=== PATIENT | male | born 1965 | race African-American/Black ===

== ENCOUNTER 2016-04-17 10:20 | Inpatient (IN) | payer OTHER ==
[2016-04-17 12:03] VITALS: BMI 18.3
--- NOTE | 2016-04-17 13:42 | HP ---
CIWA Score - CIWA Score Nausea/Vomitin Muscle Tremors: 4-Moderate,w/Arms Extend Anxiety: 3 Agitation: 0-Normal Activity Paroxysmal Sweats: 3 Orientation: 4Disoriented Place/Person Tacttile Disturbances: 0-None Auditory Disturbances: 2-Mild Harshness/Frighten Visual Disturbances: 0-None Headache: 3-Moderate CIWA-Ar Total Score: 24 Admission ROS S - HPI Chief Complaint: "I am here to quick drinking and to go to Rehab." Pt. is here to Detox from Alcohol. Allergies/Adverse Reactions: Allergies Allergy/AdvReac Type Severity Reaction Status Date / Time No Known Allergies Allergy Verified 04/17/16 11:41 History of Present Illness: Pt. is a 50 YO male here to Detox from Alcohol. Pt. has had 1 previous Detox admission at [facility], approx. 5 years ago. Pt. also intermittently uses Cocaine. Exam Limitations: No Limitations - Ebola screening Have you traveled outside of the country in the last 21 days: No Have you had contact with anyone from an Ebola affected area: No Have you been sick,other than usual withdrawal symptoms: No Do you have a fever: No - Review of Systems Constitutional: Diaphoresis, Loss of Appetite, Malaise, Night Sweats, Changes in sleep EENT: reports: No Symptoms Reported Respiratory: reports: No Symptoms reported Cardiac: reports: No Symptoms Reported GI: reports: Constipated, Diarrhea, Nausea, Poor Appetite, Vomiting : reports: No Symptoms Reported Musculoskeletal: reports: No Symptoms Reported Integumentary: reports: No Symptoms Reported Neuro: reports: Headache, Tremors Endocrine: reports: No Symptoms Reported Hematology: reports: No Symptoms Reported Psychiatric: reports: Judgement Intact, Mood/Affect Appropiate, Disorientated ( To Location.) Other Systems: Reviewed and Negative Patient History - Patient Medical History Hx Anemia: No Hx Asthma: Yes (Uses Albuterol Inhaler.) Hx Chronic Obstructive Pulmonary Disease (COPD): No Hx Cancer: No Hx Cardiac Disorders: No Hx Congestive Heart Failure: No Hx Hypertension: Yes (On meds.) Hx Hypercholesterolemia: No Hx Pacemaker: No HX Cerebrovascular Accident: No Hx Seizures: No Hx Dementia: No Hx Diabetes: No Hx Gastrointestinal Disorders: No Hx Liver Disease: No Hx Genitourinary Disorders: No Hx Sexually Transmitted Disorders: No Hx Renal Disease (ESRD): No Hx Thyroid Disease: No Hx Human Immunodeficiency Virus (HIV): No (Last tested: 2016: NEGATIVE.) Hx Hepatitis C: No (Last tested: 2016: NEGATIVE.) Hx Depression: No Hx Suicide Attempt: No (PATIANT DENIES CURRENT SI / HI.) Hx Bipolar Disorder: No Hx Schizophrenia: No - Patient Surgical History Past Surgical History: No Hx Neurologic Surgery: No Hx Cataract Extraction: No Hx Cardiac Surgery: No Hx Lung Surgery: No Hx Breast Surgery: No Hx Breast Biopsy: No Hx Abdominal Surgery: Yes (Umbilical Hernia repair during childhood.) Hx Appendectomy: No Hx Cholecystectomy: No Hx Genitourinary Surgery: No Hx Orthopedic Surgery: No Anesthesia Reaction: No - PPD History Previous Implant?: Yes (+PPD hx.) Documented Results: Positive w/o proof PPD to be Administered?: No - Reproductive History Patient is a Female of Child Bearing Age (11 -55 yrs old): No (PATIENT IS MALE.) - Smoking Cessation Smoking history: Current every day smoker Have you smoked in the past 12 months: Yes Aproximately how many cigarettes per day: 10 Cigars Per Day: 0 Hx Chewing Tobacco Use: No Initiated information on smoking cessation: Yes 'Breaking Loose' booklet given: 04/17/16 (GIVEN ON UNIT.) - Substance & Tx. History Hx Alcohol Use: Yes Hx Substance Use: Yes Substance Use Type: Alcohol, Cocaine Hx Substance Use Treatment: Yes (1 Previous Detox admission at [facility].) - Substances Abused Alcohol Route: Oral Frequency: Daily Amount used: (6) 40oz beer. Age of first use: 20 Date of Last Use: 04/16/16 Cocaine Route: Inhalation Frequency: 1-3 times last 30 days Amount used: $100 Age of first use: 15 Date of Last Use: 04/15/16 Family Disease History - Family Disease History Family Disease History: Diabetes: Mother Admission Physical Exam S - Vital Signs Vital Signs: Vital Signs - 24 hr 04/17/16 11:59 Temperature 96 F L Pulse Rate 73 Respiratory 20 Rate Blood Pressure 113/76 - Physical General Appearance: Yes: No Apparent Distress, Nourished, Appropriately Dressed , Tremorous HEENTM: Yes: Hearing grossly Normal, Normocephalic, Normal Voice, ALONDRA, Pharynx Normal Respiratory: Yes: Chest Non-Tender, Lungs Clear, No Respiratory Distress Neck: Yes: No masses,lesions,Nodules, Supple, Trachea in good position Breast: Yes: Breast Exam Deferred Cardiology: Yes: Regular Rhythm, Regular Rate, S1, S2 Abdominal: Yes: Normal Bowel Sounds, Non Tender, Flat, Soft Genitourinary: Yes: Within Normal Limits Back: Yes: Normal Inspection Musculoskeletal: Yes: full range of Motion, Gait Steady Extremities: Yes: Normal Inspection, Normal Range of Motion, Non-Tender, Tremors Neurological: Yes: Alert, Normal Mood/Affect, Normal Response, Disoriented (To Location.) Integumentary: Yes: Normal Color, Dry, Warm Lymphatic: Yes: Within Normal Limits - Diagnostic (1) Alcohol dependence with uncomplicated withdrawal Current Visit: Yes Status: Acute (2) Cocaine dependence, uncomplicated Current Visit: Yes Status: Acute (3) Nicotine dependence Current Visit: Yes Status: Chronic Qualifiers: Nicotine product type: cigarettes Substance use status: uncomplicated Qualified Code(s): F17.210 - Nicotine dependence, cigarettes, uncomplicated (4) Asthma Current Visit: Yes Status: Chronic Qualifiers: Asthma severity: mild intermittent Asthma complication type: uncomplicated Qualified Code(s): J45.20 - Mild intermittent asthma, uncomplicated (5) Hypertension Current Visit: Yes Status: Chronic Qualifiers: Hypertension type: essential hypertension Qualified Code(s): I10 - Essential (primary) hypertension Cleared for Admission S - Detox or Rehab [facility] Level of Care: Medically Managed Detox Regimen/Protocol: Librium [facility] Breath Alcohol Content Breath Alcohol Content: 0 Urine Drug Screen - Results Drug Screen Negative: No Urine Drug Screen Results: OMAR-Cocaine
[2016-04-17] MEDS ORDERED: hydrOXYzine PAMOATE 50 MG CAPSULE (FP) PO PRN (14:07)
[2016-04-17] MEDS ORDERED: IBUPROFEN 400 MG TABLET (FP) PO PRN (14:07)
[2016-04-17] MEDS ORDERED: ACETAMINOPHEN 325 MG TABLET (FP) PO PRN (14:07)
[2016-04-17] MEDS ORDERED: LOPERAMIDE HCL 2 MG CAPSULE PO PRN (14:07)
[2016-04-17] MEDS ORDERED: NICOTINE POLACRILEX 2 MG GUM BUC PRN (14:07)
[2016-04-17] MEDS ORDERED: MENTHOL/PHENOL 1 EACH UD MM PRN (14:07)
[2016-04-17] MEDS ORDERED: MAGNESIUM HYDROX 2400MG/30ML ORAL SUSPENSION 30 ML CUP PO PRN (14:07)
[2016-04-17] MEDS ORDERED: MAGNESIUM CITRATE 300 ML BOTTLE PO PRN (14:07)
[2016-04-17] MEDS ORDERED: diphenhydrAMINE HCL 50 MG CAPSULE PO PRN (14:07)
[2016-04-17] MEDS ORDERED: guaiFENesin/D-METHORPHAN HB 10 ML UNIT-DOSE CUPS PO PRN (14:07)
[2016-04-17] MEDS ORDERED: P-EPHED 60MG/TRIPROLIDI 2.5MG TABLET PO PRN (14:07)
[2016-04-17] MEDS ORDERED: MAG HYDROX/AL HYDROX/SIMETH 30 ML UNIT-DOSE CUP PO PRN (14:07)
[2016-04-17] MEDS ORDERED: chlordiazePOXIDE HCL 25 MG CAPSULE PO PRN (14:07)
[2016-04-17] MEDS ORDERED: ALBUTEROL SO4 6.7 GM HFA INHALER IH PRN (14:13)
[2016-04-17] MEDS ORDERED: chlordiazePOXIDE HCL 25 MG CAPSULE PO ONE (14:30)
[2016-04-17] MEDS: LOSARTAN POTASSIUM 25 MG TABLET PO SCH (15:13)
[2016-04-17 17:39] LABS: URINE APPEARANCE SLCLOUDY; URINE BLOOD NEGATIVE (NEGATIVE); URINE COLOR AMBER; URINE GLUCOSE (UA) NEGATIVE (NEGATIVE); URINE KETONE 1+ (NEGATIVE); URINE NITRITE NEGATIVE (NEGATIVE); URINE UROBILINOGEN 4.0 E.U/dl E.U./dl (0.2-1.0)
[2016-04-17 17:50] LABS: URINE LEUK ESTERASE 2+ (NEGATIVE); URINE PROTEIN 1+ (NEGATIVE)
[2016-04-17] MEDS: chlordiazePOXIDE HCL 25 MG CAPSULE PO SCH ×2 (17:55→23:45)
[2016-04-17 18:01] LABS: CALCIUM OXALATE CRYSTALS MODERATE /hpf (NONE SEEN); URINE MUCUS MANY; URINE RBC 3 /hpf (0-3); URINE WBC 2 /hpf (3-5)
[2016-04-17] MEDS: THIAMINE HCL 100 MG TABLET (FP) PO SCH (22:55)
--- NOTE | 2016-04-18 00:04 | EKG ---
Test Reason : Blood Pressure : / mmHG Vent. Rate : 053 BPM Atrial Rate : 053 BPM P-R Int : 162 ms QRS Dur : 106 ms QT Int : 456 ms P-R-T Axes : 068 068 065 degrees QTc Int : 427 ms SINUS BRADYCARDIA MODERATE VOLTAGE CRITERIA FOR LVH, MAY BE NORMAL VARIANT BORDERLINE ECG NO PREVIOUS ECGS AVAILABLE Confirmed by SWAPNIL COURTNEY MD ([id number]) on 04/18/2016 12:03:55 AM Referred By: Confirmed By:SWAPNIL COURTNEY MD
[2016-04-18] MEDS: chlordiazePOXIDE HCL 25 MG CAPSULE PO SCH ×4 (05:39→23:06)
[2016-04-18 10:01] LABS: MCH 27.3 pg (25.7-33.7); MCHC 32.2 g/dl (32.0-35.9); MEAN CELL VOLUME 84.8 fl (80-96); MEAN PLT VOLUME 9.6 fl (7.5-11.1); PLATELET COUNT 169 K/MM3 (134-434); RDW 15.4 % (11.9-15.9); WHITE BLOOD COUNT 5.4 K/mm3 (4.0-10.0)
[2016-04-18 10:13] LABS: ALBUMIN 3.3 g/dl (3.4-5.0); ANION GAP 8 (8-16); CO2 31 mmol/L (21-32); GLUCOSE,RANDOM 81 mg/dL (74-106)
[2016-04-18 10:21] LABS: ALK PHOS 73 U/L (45-117); BILIRUBIN,TOTAL 0.2 mg/dL (0.2-1.0); CREATININE 1.1 mg/dL (0.7-1.3); SGOT/AST 23 U/L (15-37); SGPT/ALT 23 U/L (12-78); TOT PROT 6.2 g/dl (6.4-8.2)
[2016-04-18 10:45] LABS: HIV 1 & 2 AB NEGATIVE; HIV 1 AGp24 NEGATIVE
[2016-04-18] MEDS: PRENATAL VITAMINS W/ FOLIC ACID TABLET (FP) PO SCH (10:56)
[2016-04-18] MEDS: LOSARTAN POTASSIUM 25 MG TABLET PO SCH (10:56)
[2016-04-18] MEDS ORDERED: POTASSIUM CHLORIDE TABS 20 MEQ TABLET.ER (FP) PO ONE (11:28)
--- NOTE | 2016-04-18 11:28 | PN ---
S CIWA - CIWA Score Nausea/Vomitin Muscle Tremors: 3 Anxiety: 3 Agitation: 3 Paroxysmal Sweats: 1-Minimal Palms Moist Orientation: 0-Oriented Tacttile Disturbances: 1-Very Mild Itch/Numbness Auditory Disturbances: 1-Very Mild Visual Disturbances: 1-Very Mild Sensitivity Headache: 2-Mild CIWA-Ar Total Score: 18 [facility] Progress Note (SOAP) Subjective: ALERT,IRRITABLE,ANXIOUS,INTERRUPTED SLEEP,TREMOR Objective: 04/18/16 11:24 Vital Signs Temperature 97.7 F 04/18/16 10:16 Pulse Rate 68 04/18/16 10:16 Respiratory Rate 16 04/18/16 10:16 Blood Pressure 116/65 04/18/16 10:16 O2 Sat by Pulse Oximetry (%) 04/18/16 11:24 EKG SINUS BRADYCARDIA 53 MIN,LVH NO CHEST PAIN,NO SOB,NO DIZZINESS Assessment: 04/18/16 11:25 Laboratory Last Values WBC 5.4 K/mm3 (4.0-10.0) 04/18/16 07:00 RBC 4.50 M/mm3 (4.00-5.60) 04/18/16 07:00 Hgb 12.3 GM/dL (11.7-16.9) 04/18/16 07:00 Hct 38.2 % (35.4-49) 04/18/16 07:00 MCV 84.8 fl (80-96) 04/18/16 07:00 MCHC 32.2 g/dl (32.0-35.9) 04/18/16 07:00 RDW 15.4 % (11.9-15.9) 04/18/16 07:00 Plt Count 169 K/MM3 (134-434) 04/18/16 07:00 MPV 9.6 fl (7.5-11.1) 04/18/16 07:00 Sodium 142 mmol/L (136-145) 04/18/16 07:00 Potassium 3.3 mmol/L (3.5-5.1) L 04/18/16 07:00 Chloride 103 mmol/L (98-107) 04/18/16 07:00 Carbon Dioxide 31 mmol/L (21-32) 04/18/16 07:00 Anion Gap 8 (8-16) 04/18/16 07:00 BUN 15 mg/dL (7-18) 04/18/16 07:00 Creatinine 1.1 mg/dL (0.7-1.3) 04/18/16 07:00 Creat Clearance w eGFR > 60 (>60) 04/18/16 07:00 Random Glucose 81 mg/dL (74-106) 04/18/16 07:00 Calcium 9.0 mg/dL (8.5-10.1) 04/18/16 07:00 Total Bilirubin 0.2 mg/dL (0.2-1.0) 04/18/16 07:00 AST 23 U/L (15-37) 04/18/16 07:00 ALT 23 U/L (12-78) 04/18/16 07:00 Alkaline Phosphatase 73 U/L (45-117) 04/18/16 07:00 Total Protein 6.2 g/dl (6.4-8.2) L 04/18/16 07:00 Albumin 3.3 g/dl (3.4-5.0) L 04/18/16 07:00 Urine Color Melissa 04/17/16 Unknown Urine Appearance Slcloudy 04/17/16 Unknown Urine pH 5.0 (5.0-8.0) 04/17/16 Unknown Ur Specific Jeannette 1.039 (1.001-1.035) H 04/17/16 Unknown Urine Protein 1+ (NEGATIVE) H 04/17/16 Unknown Urine Glucose (UA) Negative (NEGATIVE) 04/17/16 Unknown Urine Ketones 1+ (NEGATIVE) H 04/17/16 Unknown Urine Blood Negative (NEGATIVE) 04/17/16 Unknown Urine Nitrite Negative (NEGATIVE) 04/17/16 Unknown Urine Bilirubin 2.0 (NEGATIVE) 04/17/16 Unknown Urine Urobilinogen 4.0 e.u/dl E.U./dl (0.2-1.0) 04/17/16 Unknown Ur Leukocyte Esterase 2+ (NEGATIVE) H 04/17/16 Unknown Urine RBC 3 /hpf (0-3) 04/17/16 Unknown Urine WBC 2 /hpf (3-5) 04/17/16 Unknown Calcium Oxalate Crystal Moderate /hpf (NONE SEEN) 04/17/16 Unknown Urine Mucus Many 04/17/16 Unknown HIV 1&2 Antibody Screen Negative 04/17/16 07:00 HIV P24 Antigen Negative 04/17/16 07:00 04/18/16 11:26 Plan: WITHDRAWAL SYMPTOM,CONTINUE DETOX,K DUR 20 MEQ PO BID,
[2016-04-18] MEDS: POTASSIUM CHLORIDE TABS 20 MEQ TABLET.ER (FP) PO SCH (22:54)
[2016-04-18] MEDS: THIAMINE HCL 100 MG TABLET (FP) PO SCH (23:06)
[2016-04-19] MEDS: chlordiazePOXIDE HCL 25 MG CAPSULE PO SCH ×2 (05:40→10:23)
[2016-04-19] MEDS: LOSARTAN POTASSIUM 25 MG TABLET PO SCH (10:22)
[2016-04-19] MEDS: PRENATAL VITAMINS W/ FOLIC ACID TABLET (FP) PO SCH (10:22)
[2016-04-19] MEDS: POTASSIUM CHLORIDE TABS 20 MEQ TABLET.ER (FP) PO SCH (10:22)
[2016-04-19 10:25] VITALS: BP 95/74; PULSE 57; TEMP 98.3
--- NOTE | 2016-04-19 11:11 | PN ---
S CIWA - CIWA Score Nausea/Vomitin Muscle Tremors: 2 Anxiety: 3 Agitation: 2 Paroxysmal Sweats: 1-Minimal Palms Moist Orientation: 0-Oriented Tacttile Disturbances: 1-Very Mild Itch/Numbness Auditory Disturbances: 1-Very Mild Visual Disturbances: 1-Very Mild Sensitivity Headache: 2-Mild CIWA-Ar Total Score: 16 [facility] Progress Note (SOAP) Subjective: ALERT,IRRITABLE,ANXIOUS,INTERRUPTED SLEEP Objective: 04/19/16 11:11 Vital Signs Temperature 98.3 F 04/19/16 10:24 Pulse Rate 57 L 04/19/16 10:24 Respiratory Rate 20 04/19/16 10:24 Blood Pressure 95/74 04/19/16 10:24 O2 Sat by Pulse Oximetry (%) 04/19/16 11:11 Assessment: 04/19/16 11:11 WITHDRAWAL SYMPTOM Plan: CONTINUE DETOX
--- NOTE | 2016-04-19 11:16 | PN ---
[facility] Progress Note Note: PATIENT REFUSED TO TAKE MEDICATION,NON COMPLIANCE,HAS BEEN TOLD SEVERAL TIMES BY COUNSELOR AND PROVIDER AND NURSE,PATIENT STILL REFUSED, ADMINISTRATIVE DISCHARGE
--- NOTE | 2016-04-19 11:21 | DS ---
[facility] Detox Discharge Summary Admission Date: 04/17/16 Discharge Date: 04/19/16 - History Present History: Alcohol Dependence, Cocaine Dependence Additional Comments: PATIENT REFUSED TO TAKE MEDICATIONS,NON COMPLIANCE,HAS BEEN TOLD SEVERAL TIMES BY COUNSELOR, AND THE PROVIDER AND NURSES,STILL REFUSED TO TAKE MEDICATIONS, ADMINISTRATIVE DISCHARGE,ADVISE FOLLOW UP WITH PMD FOR MEDICAL PROBLEM Pertinent Past History: ASTHMA HYPERTENSION - Physical Exam Results Vital Signs: Vital Signs Temperature 98.3 F 04/19/16 10:24 Pulse Rate 57 L 04/19/16 10:24 Respiratory Rate 20 04/19/16 10:24 Blood Pressure 95/74 04/19/16 10:24 O2 Sat by Pulse Oximetry (%) Pertinent Admission Physical Exam Findings: WITHDRAWAL SYMPTOM - Medication Discharge Medications: Ambulatory Orders Albuterol Sulfate Inhaler - [Ventolin Hfa Inhaler -] 2 puff IH PRN PRN 04/17/16 Losartan Potassium [Cozaar -] 25 mg PO DAILY 04/17/16 - AMA Did Patient Leave Against Medical Advice: No
--- NOTE | 2016-04-19 11:31 | PN ---
[facility] Progress Note Note: HYPOKALEMIA ON K DUR 20 MEQ PO BID SENT TO HIS PHARMACY TOTAL 7 TABS AND ALBUTEROL INHALER
[2016-04-19] MEDS ORDERED: chlordiazePOXIDE 5 MG CAPSULE PO SCH (17:00)
[2016-04-20] MEDS ORDERED: chlordiazePOXIDE HCL 10 MG CAPSULE PO SCH (17:00)
== END 2016-04-19 11:06 | disposition home or self-care (01) | DRG 774 ==
LOC: YASAS 10:20 → Y6N 12:23
PROVIDERS: ADMIT Internal Medicine Addiction Medicine; ATTEND Internal Medicine Addiction Medicine
PROC: HZ2ZZZZ Detoxification Services for Substance Abuse Treatment (ICD-10-PCS; principal; 2016-04-19)
DX: F10.230 Alcohol dependence with withdrawal, uncomplicated (principal); F14.20 Cocaine dependence, uncomplicated; F17.210 Nicotine dependence, cigarettes, uncomplicated; I10 Essential (primary) hypertension; J45.20 Mild intermittent asthma, uncomplicated; F91.8 Other conduct disorders
CPT/HCPCS: 36415; 80053; 81003; 81015; 85027; 86593; 87389; 93005; 93010